=== PATIENT | male | born 1970 | race Caucasian/White ===

== ENCOUNTER 2020-10-19 09:53 | Outpatient (CLI) | payer OTHER | END 2020-10-19 23:59 | disposition home or self-care (01) | LOC: CVU 09:53 | PROVIDERS: ATTEND Internal Medicine Cardiovascular Disease | DX: I08.8 Other rheumatic multiple valve diseases (principal); R07.89 Other chest pain; E78.2 Mixed hyperlipidemia | CPT/HCPCS: 93306 ==

== ENCOUNTER → 2020-10-20 | Outpatient (CLI) | payer OTHER | END | disposition home or self-care (01) | LOC: CFH 10:31 | PROVIDERS: ATTEND Internal Medicine Cardiovascular Disease | DX: Z13.6 Encounter for screening for cardiovascular disorders (principal); R07.89 Other chest pain; E78.2 Mixed hyperlipidemia; E78.00 Pure hypercholesterolemia, unspecified; K76.0 Fatty (change of) liver, not elsewhere classified | CPT/HCPCS: 75571 ==